=== PATIENT | male | born 1980 | race Caucasian/White ===

== ENCOUNTER 2025-04-29 15:19 | Emergency (ER) | payer BC, SELFPAY ==
[2025-04-29 15:20] VITALS: BP 160/96
[2025-04-29 16:23] VITALS: BP 133/88
[2025-04-29 16:30] VITALS: BMI 25.8
[2025-04-29 16:37] LABS: Hematocrit 41.0 % (39.0-52.0); Hemoglobin 14.0 g/dL (13.0-18.0); Mean Corp Hgb Conc. 34.1 g/dL (33.0-37.0); Mean Corpuscular Volume 87.0 fL (80.0-94.0); Nucleated Red Blood Cells % 0 % (-); Platelet Count 224 10^3/uL (130-400); Red Cell Dist. Width 12.5 % (11.5-14.5)
[2025-04-29 16:42] VITALS: BP 133/88
[2025-04-29 16:51] LABS: ALT (SGPT) 18 U/L (0-50); AST (SGOT) 28 U/L (17-59); Albumin 4.8 g/dl (3.5-5.0); Alkaline Phosphatase 53 U/L (38-126); Blood Urea Nitrogen 15 mg/dl (9-20); Calcium 9.5 mg/dl (8.4-10.2); Carbon Dioxide 28 mmol/L (22-30); Chloride 101 mmol/L (98-107); Estimated Creatinine Clearance 90 ml/min; Glucose 80 mg/dl (70-99); Magnesium 1.9 mg/dl (1.6-2.3); Potassium 4.0 mmol/L (3.5-5.1); Sodium 137 mmol/L (135-145); Total Protein 7.4 g/dl (6.3-8.2); eGFR > 60.00
[2025-04-29 17:00] VITALS: BP 145/89
[2025-04-29 17:03] LABS: Troponin I < 0.012 ng/ml
--- NOTE | 2025-04-29 17:15 | ED.GENMED ---
History of Present Illness
<Pranay Barragan MD, Resident - Last Filed: 04/29/25 20:05>
General
Chief Complaint: Heart Rate Problem
Time Seen by Provider: 04/29/25 16:54
History of Present Illness
History of Present Illness:
44 yo M no significant PMH p/w palpitations and some lightheadedness ongoing intermittently over the past 1-2 weeks. He's been having palpitations for few months. He's presenting because it's increased in frequency over the past few days. episodes
last less than a few minutes at a time.
no clear trigger, can occur at any setting including at rest or when driving / walking. He says he breathes through the episode. He uses multivitamin, turmeric supplements but denies any increase in caffiene usage.
denies chest pain, denies dyspnea, denies headache.
he denies syncope, headstrike or fall.
He reports that he has had reflux in the past, but no reflux symptoms related to the palpitations.
He also reports a tingling in both fingertips and feet with a right sided neck feeling of 'pinched nerve.' for several months. he says that his right tricep sometimes goes numb. but this has been improving. 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 he does not think
the palpitations
no recent travel, immobilization, surgeries or known hx of malignancy. no coughing or hemoptysis.
children have URI symptoms but he feels well overall.
FH n/f father who had esophagel cancer in 50s, he is due for a EGD with GI.
social hx: no cigarette use, occasional EtOH, no rec drugs.
Review of Systems
<Pranay Barragan MD, Resident - Last Filed: 04/29/25 20:05>
Review of Systems
Constitutional: Reports no symptoms
EENT: Reports no symptoms
Respiratory: Reports no symptoms
Cardiac: Reports palpitations
ABD/GI: Reports no symptoms
: Reports no symptoms
Musculoskeletal: Reports neck pain
Neurological: Reports dizzy
Phy Exam
<Pranay Barragan MD, Resident - Last Filed: 04/29/25 20:05>
Physical Exam
Physical Exam:
VS: 133/88; HR 60l T 98.6; 99%
General: no acute distress
CV: no murmurs on my exam,
Pulm: CTAB
Abd: + bowel sounds, no tenderness to palpation
MSK: no lower extremity edema, no deficits to neck rotation, upper extremitties equally strong at elbow, shoulder joints b/l, no apparent numbness or tingling during my interview
Neuro: AOx3, nonfocal
Course
<Pranay Barragan MD, Resident - Last Filed: 04/29/25 20:05>
Orders/Labs/Results
Orders:
Orders
04/29/25 15:20
EKG [Electrocardiogram (*1)] Urgent
Reason for Study: Palpitations
EKG- Treatment ONCE
04/29/25 16:25
Complete Blood Count/With Diff Urgent
Comprehensive Metabolic Panel Urgent
Magnesium Urgent
TSH Urgent
Comment: ADD ON
Troponin I Urgent
04/29/25 16:43
CT Head W/o Iv Contrast Urgent
Comment:
Reason For Exam: numbness and tingling in b/l hands and arms
04/29/25 16:25
04/29/25 16:25
Vital Signs
Initial and Last Documented VS:
Initial Vital Signs
Temp Pulse Resp BP Pulse Ox
98.4 F 57 20 160/96 98
04/29/25 15:20 04/29/25 15:20 04/29/25 15:20 04/29/25 15:20 04/29/25 15:20
Last Documented Vital Signs
Temp Pulse Resp BP Pulse Ox
98.6 F 58 22 131/81 97
04/29/25 16:42 04/29/25 18:45 04/29/25 18:45 04/29/25 18:39 04/29/25 18:45
<Heidy Dailey DO - Last Filed: 04/29/25 19:14>
Orders/Labs/Results
Orders:
Orders
04/29/25 15:20
EKG [Electrocardiogram (*1)] Urgent
Reason for Study: Palpitations
EKG- Treatment ONCE
04/29/25 16:25
Complete Blood Count/With Diff Urgent
Comprehensive Metabolic Panel Urgent
Magnesium Urgent
TSH Urgent
Comment: ADD ON
Troponin I Urgent
04/29/25 16:43
CT Head W/o Iv Contrast Urgent
Comment:
Reason For Exam: numbness and tingling in b/l hands and arms
04/29/25 16:25
04/29/25 16:25
Vital Signs
Initial and Last Documented VS:
Initial Vital Signs
Temp Pulse Resp BP Pulse Ox
98.4 F 57 20 160/96 98
04/29/25 15:20 04/29/25 15:20 04/29/25 15:20 04/29/25 15:20 04/29/25 15:20
Last Documented Vital Signs
Temp Pulse Resp BP Pulse Ox
98.6 F 58 22 131/81 97
04/29/25 16:42 04/29/25 18:45 04/29/25 18:45 04/29/25 18:39 04/29/25 18:45
<Pranay Barragan MD, Resident - Last Filed: 04/29/25 20:05>
MDM/Problems Addressed
Differential Diagnosis Includes:
arrhythmia, GERD, ACS, malignancy, labile HTN, anxiety
MDM/Problems Addressed:
44 yo M no significant PMH with intermittent palpitations that has increased in frequency over the past few days but ongoing for few weeks
Electrolytes are within normal limits (K 4.0, Mg 1.9). He denies any significant change in caffeine, any substantial EtOH
reports that left neck pain/pinched nerve associated with tingling in fingers and feet, but during my exam, he is able to move without any deficits and does not report those symptoms.
Troponin < 0.012
EKG sinus bradycardia - reassure against ACS
CT Head noncontrast - no acute intracranial abnormality
Plan:
added on TSH (pending)
VSS, appears medically stable enough to be discharged home
patient is okay with the plan and has a cardiology appointment already scheduled for next week, possible Holter is needed
<Pranay Barragan MD, Resident - Last Filed: 04/29/25 20:05>
*Pulse Oximetry
SaO2: 99
Oxygen Mode of Delivery: Room air
Patient hypoxic: no
*Critical Care Note
Total Time (30-74mins, 75-104mins- exclusive of procedures): Not Applicable
ED Attending Note
<Pranay Barragan MD, Resident - Last Filed: 04/29/25 20:05>
-
Portions of this chart may have been created with voice recognition software.� Occasional wrong word or��sound alike� substitutions may have occurred due to the inherent limitations of voice recognition software.
<Heidy Dailey DO - Last Filed: 04/29/25 19:14>
ED Attending Note
Patient seen and examined by attending physician: Yes
I performed the substantive portion of visit, reviewed & personally made and approve the management plan that is documented in note by myself or MICAELA.: Yes
I performed a history and physical exam of patient and discussed management with resident, I reviewed resident's note and agree with documented findings and plan of care.: Yes
ED Attending Note:
44-year-old male without significant past medical history presenting to the emergency department for intermittent palpitations. Notes symptoms for the past 1 to 2 weeks. Denies any inciting events when palpitations occur. Denies exertional
component or specific stress component. Symptoms last about a minute at a time. Denies any associated chest pain or difficulty breathing. Denies any known cardiac disease. Denies difficulty breathing. Denies any headache. Does note some mild
dizziness. Denies any fever.
Vital signs on arrival are normal. On exam patient is resting comfortably, no acute distress. Unremarkable cardiac and pulmonary exam. EKG obtained, nonischemic, no arrhythmia. No focal neurologic deficits. Nursing protocol placed prior to my
assessment with unremarkable laboratory analysis as well as CT brain imaging. No PE risk factors. Heart rate is currently normalized without any intervention. At this time without concern for ACS, PE, severe arrhythmia. Patient has already
scheduled an appointment with with her global supply chain director next week. Advised that he maintain his appointment for possible Holter monitor. Feel stable for discharge. Return precautions discussed and patient verbalized understanding
Discharge Plan
Departure
Patient Disposition: Home (Routine Discharge)
Date of Disposition: 04/29/25
Time of Disposition: 19:35
Patient with high blood pressure during this ER visit?: No
Condition: Good
Discharge Problem:
Heart palpitations
Instructions: Palpitations (DC)
Prescriptions:
No Action
No Current Medications
0
Referrals:
Memo Denis DO [Family Provider, Family Practice]
Activity Restrictions/Additional Instructions:
You were seen in the emergency department for palpitations
You were found to have reassuring laboratory analysis, vital signs, EKG. We recommend that you follow-up with the global supply chain director as scheduled next week.
Please follow-up closely with your primary care physician.
Return to the emergency department for any worsening of your symptoms, or any development of chest pain, difficulty breathing, abdominal pain with persistent vomiting and inability to tolerate food or liquid by mouth (concern for dehydration),
weakness, headache or confusion, fever greater than 100.4, or any additional symptoms that are concerning to you.
Thank you for choosing [facility].
Interventions
Interventions:
*General Assessment Last Done: 04/29/25 15:20
*Neglect/Abuse Screening Last Done: 04/29/25 15:20
*ED COVID-19 Vaccine History Last Done: 04/29/25 16:42
*ED Influenza Vaccine History Last Done: 04/29/25 16:42
[facility] Fall Risk Assessment Tool Last Done: 04/29/25 16:42
*Risk Screen - Suicide (C-SSRS) Last Done: 04/29/25 15:20
ED- Cardiac Assessment Last Done: 04/29/25 16:42
ED- Pulmonary Assessment Last Done: 04/29/25 16:42
Discharge Date and Time
Print Language: [id number]
[2025-04-29 18:39] VITALS: BP 131/81
[2025-04-29 20:30] LABS: TSH 1.44 uIU/ml (0.47-4.68)
== END 2025-04-29 20:30 | disposition home or self-care (01) ==
LOC: EMR 15:19
PROVIDERS: EMERGENCY PHYSICIAN Student in an Organized Health Care Education/Training Program; FAMILY PHYSICIAN Family Medicine
DX: R00.2 Palpitations (principal)
CPT/HCPCS: 99284; 70450; 80053; 83735; 84443; 84484; 85025; 93005